=== PATIENT | female | born 1960 | race Caucasian/White ===

== ENCOUNTER 2016-10-08 10:15 | Emergency (ER) | payer MEDICARE, MEDICAID ==
[2016-10-08] MEDS ORDERED: ASPIRIN 81 MG CHEW TAB ONE (10:37)
[2016-10-08] MEDS ORDERED: SODIUM CHLORIDE 0.9% 1,000 ML ONE (11:28)
[2016-10-08] MEDS ORDERED: KETOROLAC 30 MG/ML VIAL ONE (11:47)
[2016-10-08] MEDS ORDERED: Hydrocodone/APAP 10/325 MG TAB ONE (12:40)
== END 2016-10-08 14:35 | disposition home or self-care (01) ==
LOC: ER 10:15
DX: R07.89 Other chest pain (principal); F41.1 Generalized anxiety disorder; Z79.899 Other long term (current) drug therapy; Z91.040 Latex allergy status; Z87.891 Personal history of nicotine dependence; E03.9 Hypothyroidism, unspecified; M06.9 Rheumatoid arthritis, unspecified; Z96.642 Presence of left artificial hip joint
CPT/HCPCS: 36415; 71010; 80053; 82550; 83735; 84484; 85025; 85610; 85730; 93005; 96374; 99285; J1885